=== PATIENT | female | born 1955 | race Caucasian/White ===

== ENCOUNTER 2017-11-15 14:11 | Emergency (ER) | payer OTHER ==
[~2017-11-15] VITALS: Ht 162.6 cm; Wt 120.5 kg
[~2017-11-15 14:11] MED LIST: AMLO-511 PO; APIX5TAB PO; ATEN50TA PO; BUSP10TA23 PO; CLON-570 PO; METF500T PO; NAPR-58 PO; OLME40 PO; PANT40TA25 PO
[2017-11-15] MEDS ORDERED: OMEP20 PO (14:38)
[2017-11-15] MEDS ORDERED: ATOR10TA84 PO (14:38)
[2017-11-15 14:44] LABS: GLUCOSE,POINT OF CARE 93 MG/DL (70-110)
[2017-11-15] MEDS ORDERED: KETOROLAC TROMETHAMINE 30 MG/ML VIAL IM ONE (18:00)
[2017-11-15 18:09] VITALS: BP 149/82
== END 2017-11-15 19:10 | disposition home or self-care (01) ==
LOC: EMS 14:12
DX: M13.862 Other specified arthritis, left knee (principal); E11.9 Type 2 diabetes mellitus without complications; I10 Essential (primary) hypertension
CPT/HCPCS: 29505; 73562; 82962; 96372; 99284; J1885

== ENCOUNTER 2018-02-12 16:02 | Inpatient (IN) | payer OTHER ==
[~2018-02-12] VITALS: Ht 162.6 cm; Wt 116.9 kg
[~2018-02-12 16:02] MED LIST changes: -APIX5TAB PO; -ATEN50TA PO; +ATOR10TA84 PO; -OLME40 PO; +OLME40TA8 PO; +OMEP20 PO; -PANT40TA25 PO
[2018-02-12 17:28] LABS: ANION GAP 7 mmol/L (8-16); CALCIUM, TOTAL 9.1 mg/dL (8.8-10.5); CARBON DIOXIDE 29 mmol/L (22-29); CHLORIDE 107 mmol/L (98-107); CREATININE 0.73 mg/dL (0.60-1.30); GLOMERULAR FILTR. RATE CALC > 60 mL/min (>60); GLUCOSE,RANDOM 89 mg/dL (70-110); POTASSIUM 3.9 mmol/L (3.5-5.1); SODIUM SERUM 143 mmol/L (136-145); UREA NITROGEN, BLOOD 10 mg/dL (7-18)
[2018-02-12 17:31] LABS: PROTHROMBIN TIME 10.2 SEC (9.4-11.6)
[2018-02-12 17:35] LABS: ALANINE AMINOTRANSFERASE 13 U/L (12-78); ALBUMIN 3.5 g/dL (3.4-5.0); ALKALINE PHOSPHATASE 144 U/L (46-116); ASPARTATE AMINOTRANSFERASE 12 U/L (15-37); BILIRUBIN,TOTAL 0.3 mg/dL (0.1-1.0); CREATINE KINASE, TOTAL ONLY 70 U/L (26-192); TOTAL PROTEIN, SERUM 7.4 g/dL (6.4-8.2)
[2018-02-12 17:49] LABS: B-TYPE NATRIURETIC PEPTIDE 75 pg/mL (0-100)
[2018-02-12 17:52] LABS: BASOPHILS % (AUTO) 0.7 % (0.0-2.0); EOSINOPHILS % (AUTO) 2.5 % (1.0-6.0); HEMATOCRIT 40.5 % (36-46); HEMOGLOBIN 13.4 g/dL (12.0-16.0); LYMPHOCYTES # (AUTO) 2.6 K/uL (1.0-4.8); LYMPHOCYTES % (AUTO) 45.1 % (22.0-44.0); MEAN CORPUSCULAR HEMOGLOBIN 27.4 pg (26.0-34.0); MEAN CORPUSCULAR VOLUME 83 fL (80-100); MONOCYTES # (AUTO) 0.5 K/uL (0.1-1.0); MONOCYTES % (AUTO) 8.5 % (2.0-9.0); NEUTROPHILS # (AUTO) 2.5 K/uL (1.8-7.7); NEUTROPHILS % (AUTO) 43.2 % (40.0-70.0); PLATELET COUNT (AUTO) 304 K/uL (150-450); RED BLOOD CELL COUNT(AUTO) 4.87 MIL/uL (4.00-5.20); RED CELL DISTRIBUTION WIDTH 15.7 % (11.5-14.5)
[2018-02-12 17:58] LABS: APPEARANCE,URINE CLOUDY (CLEAR); BILIRUBIN,URINE NEGATIVE (NEGATIVE); GLUCOSE, URINE (UA) NEGATIVE (NEGATIVE); KETONES,URINE NEGATIVE (NEGATIVE); LEUKOCYTE ESTERASE ,URINE NEGATIVE (NEGATIVE); NITRATE,URINE NEGATIVE (NEGATIVE); OCCULT BLOOD,URINE NEGATIVE (NEGATIVE); PH,URINE 6.5 (5.0-8.0); PROTEIN,URINE SEE CONFIRM (NEGATIVE)
[2018-02-12 18:05] LABS: SQUAMOUS EPITHELIAL CELL,UR Moderate /LPF (None Seen); SULFOSALICYLIC ACID,URINE 3+ (Negative)
[2018-02-12 18:07] LABS: BACTERIA,URINE Few /HPF (None Seen); RBC,URINE None Seen /HPF (0-2); WBC,URINE 0-2 /HPF (0-5); YEAST,URINE Rare /HPF (None Seen)
[2018-02-12] MEDS ORDERED: ASPIRIN 325 MG TABLET PO ONE (18:15)
[2018-02-12] MEDS ORDERED: NITROGLYCERIN 2% (1 GM=INCH) PACKET TP ONE (18:15)
[2018-02-12] MEDS ORDERED: 0.9% SODIUM CHLORIDE 10 ML SYRINGE IVP PRN (19:00)
[2018-02-12] MEDS ORDERED: ACETAMINOPHEN 325 MG TABLET PO PRN (19:00)
[2018-02-12] MEDS ORDERED: ONDANSETRON HCL 4 MG/2 ML VIAL IVP PRN (20:00)
[2018-02-12] MEDS ORDERED: BISACODYL 10 MG RECTAL RECTAL SUPPOSITORY PR PRN (20:00)
[2018-02-12] MEDS ORDERED: MAGNESIUM HYDROXIDE SUSPENSION 30 ML UDCUP PO PRN (20:00)
[2018-02-12] MEDS ORDERED: IPRATROPIUM BROMIDE 0.5 MG/2.5 ML NEB SOLUTION NEB PRN (20:00)
[2018-02-12] MEDS ORDERED: ZOLPIDEM TARTRATE 5 MG TABLET PO PRN (20:00)
[2018-02-12] MEDS ORDERED: ALBUTEROL SULFATE 2.5 MG/0.5 ML NEB SOLUTION NEB PRN (20:00)
[2018-02-12] MEDS ORDERED: HydrALAZINE HCL 20 MG/ML VIAL IVP ONE (20:15)
[2018-02-12] MEDS ORDERED: DEXTROSE 50%-WATER 25 GM/50 ML SYRINGE IVP PRN (20:15)
[2018-02-12] MEDS ORDERED: MORPHINE SULFATE 2 MG/ML SYRINGE IVP PRN ×2 (20:15)
[2018-02-12] MEDS ORDERED: INSULIN LISPRO 100 UNITS/ML SQ PRN (20:15)
[2018-02-12] MEDS: BusPIRone HCL 10 MG TABLET PO SCH (20:50)
[2018-02-12] MEDS: OLMESARTAN MEDOXOMIL 40 MG TABLET PO SCH (20:50)
[2018-02-12 21:16] VITALS: BP 157/94
[2018-02-12] MEDS: ACETAMINOPHEN 325 MG TABLET PO PRN (21:32)
[2018-02-12] MEDS ORDERED: PNEUMOCOCCAL VACCINE POLYVALENT 0.5 ML VIAL [PPSV23] IM ONE (23:00)
[2018-02-12] MEDS: METOPROLOL TARTRATE 25 MG TABLET PO SCH (23:13)
[2018-02-12] MEDS: NITROGLYCERIN 2% (1 GM=INCH) PACKET TP SCH (23:14)
[2018-02-12 23:24] VITALS: BP 154/73
[2018-02-13] MEDS: ACETAMINOPHEN 325 MG TABLET PO PRN ×2 (03:07→08:09)
[2018-02-13 03:42] VITALS: BP 143/79
[2018-02-13] MEDS: METOPROLOL TARTRATE 25 MG TABLET PO SCH ×3 (05:38→21:00)
[2018-02-13] MEDS: NITROGLYCERIN 2% (1 GM=INCH) PACKET TP SCH (05:38)
[2018-02-13 06:22] LABS: BASOPHILS % (AUTO) 1.4 % (0.0-2.0); EOSINOPHILS % (AUTO) 5.5 % (1.0-6.0); HEMATOCRIT 37.9 % (36-46); HEMOGLOBIN 12.8 g/dL (12.0-16.0); LYMPHOCYTES # (AUTO) 2.6 K/uL (1.0-4.8); LYMPHOCYTES % (AUTO) 49.5 % (22.0-44.0); MEAN CORPUSCULAR HEMOGLOBIN 27.8 pg (26.0-34.0); MEAN CORPUSCULAR HGB CONC 33.8 G/dL (31.0-37.0); MEAN CORPUSCULAR VOLUME 82 fL (80-100); MONOCYTES # (AUTO) 0.5 K/uL (0.1-1.0); NEUTROPHILS # (AUTO) 1.8 K/uL (1.8-7.7); NEUTROPHILS % (AUTO) 34.6 % (40.0-70.0); PLATELET COUNT (AUTO) 294 K/uL (150-450); RED BLOOD CELL COUNT(AUTO) 4.61 MIL/uL (4.00-5.20); RED CELL DISTRIBUTION WIDTH 15.5 % (11.5-14.5)
[2018-02-13 06:31] LABS: HEMOGLOBIN A1C 5.8 % (4.5-6.2)
[2018-02-13 06:46] LABS: ALANINE AMINOTRANSFERASE 13 U/L (12-78); ALBUMIN 3.1 g/dL (3.4-5.0); ALKALINE PHOSPHATASE 120 U/L (46-116); ANION GAP 6 mmol/L (8-16); ASPARTATE AMINOTRANSFERASE 11 U/L (15-37); BILIRUBIN,TOTAL 0.3 mg/dL (0.1-1.0); CALCIUM, TOTAL 8.8 mg/dL (8.8-10.5); CARBON DIOXIDE 29 mmol/L (22-29); CHLORIDE 104 mmol/L (98-107); CHOL/HDL RATIO 2.7 (3.9-5.7); CHOLESTEROL 132 mg/dL (131-200); CREATINE KINASE, TOTAL ONLY 55 U/L (26-192); CREATININE 0.75 mg/dL (0.60-1.30); FREE T4 (FREE THYROXINE) 1.07 ng/dL (0.76-1.46); GLOMERULAR FILTR. RATE CALC > 60 mL/min (>60); GLUCOSE,RANDOM 101 mg/dL (70-110); HDL CHOLESTEROL 49 mg/dL (40-60); LDL CHOL (CALC.) 67 mg/dL (0-130); POTASSIUM 3.8 mmol/L (3.5-5.1); SODIUM SERUM 139 mmol/L (136-145); THYROID STIMULATING HORMONE 2.79 uIU/mL (0.36-3.74); TOTAL PROTEIN, SERUM 6.7 g/dL (6.4-8.2); TRIGLYCERIDES 78 mg/dL (15-150); UREA NITROGEN, BLOOD 11 mg/dL (7-18)
[2018-02-13] MEDS ORDERED: MAGNESIUM SULFATE 4 GM/WATER 100 ML IV PRN (07:00)
[2018-02-13] MEDS ORDERED: MAGNESIUM SULFATE 2 GM/WATER 50 ML IV PRN (07:00)
[2018-02-13 07:39] VITALS: BP 129/77
[2018-02-13] MEDS: ENOXAPARIN SODIUM 40 MG/0.4 ML PF SYRINGE SQ SCH (08:09)
[2018-02-13] MEDS: AmLODIPine BESYLATE 5 MG TABLET PO SCH (08:10)
[2018-02-13] MEDS: ATORVASTATIN CALCIUM 10 MG TABLET PO SCH (08:10)
[2018-02-13] MEDS: ASPIRIN 81 MG EC TABLET PO SCH (08:10)
[2018-02-13] MEDS: OMEPRAZOLE 20 MG CAPSULE PO SCH (08:10)
[2018-02-13] MEDS: BusPIRone HCL 10 MG TABLET PO SCH ×3 (08:10→21:42)
[2018-02-13] MEDS: MAGNESIUM OXIDE 400 MG TABLET PO PRN ×3 (08:58→17:07)
[2018-02-13] MEDS ORDERED: MORPHINE SULFATE 4 MG/ML SYRINGE IVP PRN ×2 (11:15)
[2018-02-13 11:35] VITALS: BP 130/75
[2018-02-13 15:23] VITALS: BP 146/79
[2018-02-13 19:09] VITALS: BP 157/76
[2018-02-13] MEDS: OLMESARTAN MEDOXOMIL 40 MG TABLET PO SCH (21:42)
[2018-02-13 23:43] VITALS: BP 146/66
[2018-02-14 04:49] LABS: GLUCOMETER DEV NAME(LOC) 5S 2R; GLUCOSE,POINT OF CARE 103 MG/DL (70-110)
[2018-02-14 04:54] LABS: GLUCOMETER DEV NAME(LOC) 5S 2R; GLUCOSE,POINT OF CARE 111 MG/DL (70-110)
[2018-02-14 05:20] LABS: GLUCOMETER DEV NAME(LOC) 5S 1N; GLUCOSE,POINT OF CARE 84 MG/DL (70-110)
[2018-02-14 05:48] VITALS: BP 143/74
[2018-02-14 07:13] VITALS: BP 140/73
[2018-02-14 08:04] LABS: EOSINOPHILS % (AUTO) 3.8 % (1.0-6.0); HEMATOCRIT 40.8 % (36-46); HEMOGLOBIN 13.5 g/dL (12.0-16.0); LYMPHOCYTES # (AUTO) 2.4 K/uL (1.0-4.8); LYMPHOCYTES % (AUTO) 40.7 % (22.0-44.0); MEAN CORPUSCULAR HEMOGLOBIN 27.3 pg (26.0-34.0); MEAN CORPUSCULAR HGB CONC 33.1 G/dL (31.0-37.0); MEAN CORPUSCULAR VOLUME 82 fL (80-100); MONOCYTES # (AUTO) 0.6 K/uL (0.1-1.0); MONOCYTES % (AUTO) 9.7 % (2.0-9.0); NEUTROPHILS # (AUTO) 2.6 K/uL (1.8-7.7); NEUTROPHILS % (AUTO) 44.8 % (40.0-70.0); PLATELET COUNT (AUTO) 308 K/uL (150-450); RED BLOOD CELL COUNT(AUTO) 4.94 MIL/uL (4.00-5.20); RED CELL DISTRIBUTION WIDTH 15.7 % (11.5-14.5)
[2018-02-14] MEDS: BusPIRone HCL 10 MG TABLET PO SCH (08:14)
[2018-02-14] MEDS: METOPROLOL TARTRATE 25 MG TABLET PO SCH (08:15)
[2018-02-14] MEDS: MAGNESIUM OXIDE 400 MG TABLET PO PRN (08:15)
[2018-02-14] MEDS: ATORVASTATIN CALCIUM 10 MG TABLET PO SCH (08:15)
[2018-02-14] MEDS: OMEPRAZOLE 20 MG CAPSULE PO SCH (08:15)
[2018-02-14] MEDS: ASPIRIN 81 MG EC TABLET PO SCH (08:15)
[2018-02-14] MEDS: ENOXAPARIN SODIUM 40 MG/0.4 ML PF SYRINGE SQ SCH (08:19)
[2018-02-14] MEDS ORDERED: APIX5TAB PO (09:18)
[2018-02-14] MEDS ORDERED: METF-960 PO (09:18)
[2018-02-14] MEDS ORDERED: METO-558 PO (09:19)
[2018-02-14] MEDS: AmLODIPine BESYLATE 5 MG TABLET PO SCH (09:33)
[2018-02-14 09:39] LABS: ANION GAP 9 mmol/L (8-16); CALCIUM, TOTAL 8.8 mg/dL (8.8-10.5); CARBON DIOXIDE 27 mmol/L (22-29); CHLORIDE 103 mmol/L (98-107); CREATININE 0.77 mg/dL (0.60-1.30); GLOMERULAR FILTR. RATE CALC > 60 mL/min (>60); GLUCOSE,RANDOM 96 mg/dL (70-110); POTASSIUM 4.1 mmol/L (3.5-5.1); SODIUM SERUM 139 mmol/L (136-145); UREA NITROGEN, BLOOD 15 mg/dL (7-18)
[2018-02-14 10:48] LABS: GLUCOMETER DEV NAME(LOC) 5S 2R; GLUCOSE,POINT OF CARE 112 MG/DL (70-110)
[2018-02-16 20:58] LABS: GLUCOMETER DEV NAME(LOC) 5N 2S; GLUCOSE,POINT OF CARE 104 MG/DL (70-110)
== END 2018-02-14 09:50 | disposition home or self-care (01) | DRG 313 ==
LOC: EMS 16:02 → 5S 20:05
PROVIDERS: ADMIT Internal Medicine Geriatric Medicine; ATTEND Internal Medicine Geriatric Medicine
DX: R07.89 Other chest pain (principal); Z68.41 Body mass index [BMI] 40.0-44.9, adult; I10 Essential (primary) hypertension; D64.9 Anemia, unspecified; E11.9 Type 2 diabetes mellitus without complications; E66.9 Obesity, unspecified; R51 Headache; E78.5 Hyperlipidemia, unspecified; E83.42 Hypomagnesemia; Z79.01 Long term (current) use of anticoagulants; Z86.718 Personal history of other venous thrombosis and embolism; Z23 Encounter for immunization
CPT/HCPCS: 83036; 83735; 84439; 84443; 90686; 90732; 93005; 93306; 96374; G0378; J0360; J1650

== ENCOUNTER 2018-10-08 14:22 | Emergency (ER) | payer OTHER ==
[~2018-10-08] VITALS: Ht 162.6 cm; Wt 113.6 kg
[~2018-10-08 14:22] MED LIST changes: +APIX5TAB PO; -CLON-570 PO; +METF-960 PO; -METF500T PO; +METO-558 PO
[2018-10-08] MEDS ORDERED: KETOROLAC TROMETHAMINE 30 MG/ML VIAL IM ONE (17:00)
[2018-10-08] MEDS ORDERED: ACETAMINOPHEN 500 MG TABLET PO ONE (18:30)
[2018-10-08 19:59] LABS: GLUCOSE,POINT OF CARE 92 MG/DL (70-110)
[2018-10-08 20:28] VITALS: BP 140/82
== END 2018-10-08 20:37 | disposition home or self-care (01) ==
LOC: EMS 14:24
DX: S70.02XA Contusion of left hip, initial encounter (principal); M19.90 Unspecified osteoarthritis, unspecified site; E11.9 Type 2 diabetes mellitus without complications; I10 Essential (primary) hypertension; Z79.84 Long term (current) use of oral hypoglycemic drugs; W19.XXXA Unspecified fall, initial encounter; Y93.89 Activity, other specified; Y92.89 Other specified places as the place of occurrence of the external cause; Y99.8 Other external cause status
CPT/HCPCS: 73521; 82962; 96372; 99283; J1885

== ENCOUNTER 2018-10-09 09:03 | Emergency (ER) | payer OTHER ==
[~2018-10-09] VITALS: Ht 162.6 cm; Wt 113.6 kg
[2018-10-09 09:19] LABS: GLUCOSE,POINT OF CARE 130 MG/DL (70-110)
[2018-10-09] MEDS ORDERED: KETOROLAC TROMETHAMINE 30 MG/ML VIAL IVP ONE (09:30)
[2018-10-09] MEDS ORDERED: MORPHINE SULFATE 4 MG/ML SYRINGE IVP ONE (09:30)
[2018-10-09 10:41] VITALS: BP 147/84
== END 2018-10-09 11:10 | disposition home or self-care (01) ==
LOC: EMS 09:04
DX: M54.32 Sciatica, left side (principal); E11.9 Type 2 diabetes mellitus without complications; I10 Essential (primary) hypertension; M19.90 Unspecified osteoarthritis, unspecified site; Z86.718 Personal history of other venous thrombosis and embolism; Z79.899 Other long term (current) drug therapy
CPT/HCPCS: 82962; 96374; 96375; 99283; J1885; J2270

== ENCOUNTER 2020-09-09 15:44 | Emergency (ER) | payer OTHER ==
[~2020-09-09] VITALS: Ht 162.6 cm; Wt 113.6 kg
[~2020-09-09 15:44] MED LIST changes: +AMLO-257 PO; -AMLO-511 PO; +NAPR-1025 PO; -NAPR-58 PO; +NITR0.4T50 SL
[2020-09-09 15:51] VITALS: BP 180/86
[2020-09-09] MEDS ORDERED: ACETAMINOPHEN 500 MG TABLET PO ONE (16:15)
[2020-09-09 16:39] LABS: BASOPHILS % (AUTO) 0.2 % (0.0-2.0); EOSINOPHILS % (AUTO) 4.9 % (1.0-6.0); HEMATOCRIT 39.1 % (36-46); HEMOGLOBIN 12.5 g/dL (12.0-16.0); LYMPHOCYTES # (AUTO) 2.5 K/uL (1.0-4.8); LYMPHOCYTES % (AUTO) 54.2 % (22.0-44.0); MEAN CORPUSCULAR HGB CONC 31.9 G/dL (31.0-37.0); MEAN CORPUSCULAR VOLUME 85 fL (80-100); MONOCYTES # (AUTO) 0.4 K/uL (0.1-1.0); MONOCYTES % (AUTO) 9.1 % (2.0-9.0); NEUTROPHILS # (AUTO) 1.4 K/uL (1.8-7.7); NEUTROPHILS % (AUTO) 31.6 % (40.0-70.0); PLATELET COUNT (AUTO) 277 K/uL (150-450); RED BLOOD CELL COUNT(AUTO) 4.62 MIL/uL (4.00-5.20); RED CELL DISTRIBUTION WIDTH 15.4 % (11.5-14.5)
[2020-09-09 16:56] LABS: ANION GAP 9 mmol/L (8-16); CALCIUM, TOTAL 8.9 mg/dL (8.8-10.5); CARBON DIOXIDE 27 mmol/L (22-29); CHLORIDE 102 mmol/L (98-107); CREATININE 0.76 mg/dL (0.60-1.30); GLOMERULAR FILTR. RATE CALC > 60 mL/min (>60); GLUCOSE,RANDOM 95 mg/dL (70-110); POTASSIUM 4.1 mmol/L (3.5-5.1); SODIUM SERUM 138 mmol/L (136-145); UREA NITROGEN, BLOOD 13 mg/dL (7-18)
[2020-09-09 17:02] LABS: ALANINE AMINOTRANSFERASE 14 U/L (12-78); ALBUMIN 3.7 g/dL (3.4-5.0); ALKALINE PHOSPHATASE 145 U/L (46-116); ASPARTATE AMINOTRANSFERASE 12 U/L (15-37); BILIRUBIN,TOTAL 0.4 mg/dL (0.1-1.0); TOTAL PROTEIN, SERUM 6.9 g/dL (6.4-8.2)
[2020-09-09 17:13] LABS: D-DIMER 0.68 mg/L FEU (0.00-0.50)
[2020-09-09 17:36] LABS: B-TYPE NATRIURETIC PEPTIDE 153 pg/mL (0-100)
== END 2020-09-09 18:23 | disposition home or self-care (01) ==
LOC: EMS 15:44
DX: M17.0 Bilateral primary osteoarthritis of knee (principal); R60.0 Localized edema; E11.9 Type 2 diabetes mellitus without complications; I10 Essential (primary) hypertension; Z79.84 Long term (current) use of oral hypoglycemic drugs
CPT/HCPCS: 80053; 83880; 85025; 85379; 85610; 85730; 93970; 99284

== ENCOUNTER 2021-02-20 13:22 | Emergency (ER) | payer OTHER ==
[~2021-02-20] VITALS: Ht 162.6 cm; Wt 109.1 kg
[~2021-02-20 13:22] MED LIST changes: +METF-1211 PO; -METF-960 PO
[2021-02-20] MEDS ORDERED: HYDR-4723 PO (13:31)
[2021-02-20 13:46] LABS: GLUCOMETER DEV NAME(LOC) ERT.5; GLUCOSE,POINT OF CARE 107 MG/DL (70-110)
[2021-02-20] MEDS ORDERED: KETOROLAC TROMETHAMINE 30 MG/ML VIAL IM ONE (15:30)
[2021-02-20] MEDS ORDERED: LIDOCAINE 5% TRANSDERMAL PATCH TD ONE (15:30)
[2021-02-20 16:38] VITALS: BP 148/80
== END 2021-02-20 17:17 | disposition home or self-care (01) ==
LOC: EMS 13:26
DX: M25.552 Pain in left hip (principal); E11.9 Type 2 diabetes mellitus without complications; I10 Essential (primary) hypertension
CPT/HCPCS: 72100; 73503; 82962; 96372; 99284; J1885